=== PATIENT | male | born 1990 | race Caucasian/White ===

== ENCOUNTER 2020-01-03 21:28 | Emergency (ER) | payer SELFPAY ==
--- NOTE | ~2020-01-03 | XR_ITS ---
EXAMINATION: XR chest 2V DATE: 01/03/2020 22:37 INDICATION: Chest pain. Allergic reaction. TECHNIQUE: Frontal and lateral views of the chest were obtained. COMPARISON: Chest 2 views 01/31/2019 FINDINGS: The chest demonstrates clear lungs without pneumonia, pleural effusion, or pneumothorax. Th e heart size is normal. IMPRESSION: 1. No acute cardiopulmonary disease. Reviewed, dictated and finalized at location A.
[2020-01-03 21:33] VITALS: BP 127/90; PULSE 76; RESP 31; TEMP 36.8; O2SAT 98
--- NOTE | 2020-01-03 21:51 | ECG_ITS ---
Measurements Intervals [place] Rate: 65 P: 29 GA: 146 QRS: 35 QRSD: 107 T: 39 QT: 374 QTc: 391 Interpretive Statements SINUS RHYTHM INCOMPLETE RIGHT BUNDLE BRANCH BLOCK DELAYED PRECORDIAL R/S TRANSITION BASELINE ARTIFACT- I, III, AVL BORDERLINE ECG Electronically Signed On 01-04-2020 7:44:04 CDT by Tye Alcazar D.O.
--- NOTE | 2020-01-03 22:11 | ED.ALLEREA ---
HPI - Allergic Reaction General Chief complaint: Allergic Reaction Stated complaint: allergic reaction Time Seen by Provider: 01/03/20 21:36 History of Present Illness HPI narrative: He reports that he feels as if his throat is swelling. This is associated with epigastric pain and nausea. This started after eating left over [place] food. He is afraid that the food may have been contaminated with nuts. He had no reaction when ate the food previously. He reports 1 prior allergic reaction where his throat was closing . He says that it was treated with benadryl only. Related Data Home Medications Medication Instructions Recorded Confirmed escitalopram oxalate 20 mg PO DAILY 04/28/19 04/28/19 zolpidem [Ambien] 5 mg PO HS PRN 01/03/20 Allergies Allergy/AdvReac Type Severity Reaction Status Date / Time tree nut Allergy Anaphylactic Verified 01/03/20 22:21 Shock ORANGE DYE Allergy Intermediate WHEEZING, Uncoded 01/03/20 22:21 DIARRHEA Review of Systems Review of Systems: All systems reviewed & are unremarkable except as noted in HPI and below Constitutional: Constitutional: Denies fever(s) ENT: Reports dysphagia Cardiovascular: Cardiovascular: Reports chest pain Respiratory: Respiratory: Reports dyspnea Gastrointestinal: Gastrointestinal: Reports abdominal pain and Reports nausea PMFSH Past Medical History Medical History Anxiety Normal colonoscopy Social History Social History Smoking status: Never smoker Exam Const: General: healthy appearing, no acute distress and alert Orientation/consciousness: patient oriented x3 HENMT: Head: normal to inspection Neck: Neck: normal visual inspection and no lymphadenopathy Other: no stridor Chest: Chest palpation & inspection: no tenderness Resp: Effort & Inspection: normal respiratory effort Auscultation: clear to auscultation bilaterally, no rales, no rhonchi and no wheezes Cardio: Jugular venous distension: no JVD Rate: regular rate Rhythm: regular rhythm Heart sounds: no murmurs GI: Inspection: non-distended GI Palp: Yes Soft to palpation and No Tenderness to palpation present (GI) Skin: General skin exam: normal color Neuro: General: patient oriented x3 and moves all extremities Speech: normal speech Extrem: General: no edema Psych: Appearance: well kempt Affect: Anxious affect present Course Vital Signs Vital signs: Vital Signs Temperature 36.8 C 01/03/20 21:33 Pulse Rate 76 01/03/20 21:33 Respiratory Rate 31 H 01/03/20 21:33 Blood Pressure 127/90 01/03/20 21:33 Pulse Oximetry 98 01/03/20 21:33 Temperature 36.8 C 01/03/20 21:33 Pulse Rate 69 01/04/20 00:17 Respiratory Rate 14 01/04/20 00:17 Blood Pressure 110/71 01/04/20 00:17 Pulse Oximetry 98 01/04/20 00:17 MDM - Allergic Reaction MDM Narrative Medical decision making narrative: I see no objective evidence of allergic reaction. I suspect he has some esophageal irritation from acid reflux and he is very anxious. Symptoms resolved with protonix and a small dose of ativan Medical Records Attestation: I reviewed the patient's medical records. Lab Data Attestation: I reviewed the patient's lab results. Result diagrams: 01/03/20 22:30 01/03/20 22:30 Labs: Lab Results 01/03/20 01/03/20 Range/Units 22:30 22:30 WBC 5.5 (4.5-10.0) K/mm3 RBC 5.37 (4.6-6.20) M/mm3 Hgb 15.8 (14.0-18.0) g/dL Hct 44.9 (42.0-52.0) % MCV 83.6 (80-100) fl MCH 29.4 (26-34) pg MCHC 35.2 (32-36) g/dl RDW 12.6 (11.5-14.5) % Plt Count 243 (150-375) k/mm3 MPV 10.5 H (7.4-10.4) fl Immature Gran % (Auto) 0.2 (0-0.5) % Neut % (Auto) 40.5 L (45.5-73.1) % Lymph % (Auto) 47.8 H (18.3-44.2) % [place] % (Auto) 8.6 H (2.6-8.5) % Eos % (Auto) 2.2 (0-4.4) % Baso % (Auto
[2020-01-03 22:25] VITALS: BP 133/91; PULSE 74; RESP 14; O2SAT 97
[2020-01-03 22:27] VITALS: PULSE 79; RESP 14; O2SAT 97
[2020-01-03] MEDS: PANTOPRAZOLE SODIUM IV 40 MG VIAL IV PUSH (22:31)
[2020-01-03 22:38] LABS: Basophils Percent Auto 0.7 % (0.2-1.2); Eosinophils Absolute Auto 0.1 K/mm3 (0-0.3); Eosinophils Percent Auto 2.2 % (0-4.4); Hematocrit 44.9 % (42.0-52.0); Hemoglobin 15.8 g/dL (14.0-18.0); Immature Granulocyte Absolute 0.01 K/mm3 (0.00-0.031); Immature Granulocyte Percent A 0.2 % (0-0.5); Lymphocytes Absolute Auto 2.62 K/mm3 (0.9-3.2); Lymphocytes Percent Auto 47.8 % (18.3-44.2); Mean Corpuscular HGB Conc 35.2 g/dl (32-36); Mean Corpuscular Hemoglobin 29.4 pg (26-34); Mean Corpuscular Volume 83.6 fl (80-100); Mean Platelet Volume 10.5 fl (7.4-10.4); Monocytes Absolute Auto 0.5 K/mm3 (0.1-0.6); Monocytes Percent Auto 8.6 % (2.6-8.5); Neutrophils Absolute Auto 2.2 K/mm3 (1.3-6.7); Neutrophils Percent Auto 40.5 % (45.5-73.1); Platelet Count Result 243 k/mm3 (150-375); Red Blood Count 5.37 M/mm3 (4.6-6.20); Red Cell Distribution Width 12.6 % (11.5-14.5); White Blood Count 5.5 K/mm3 (4.5-10.0)
[2020-01-03 22:52] LABS: Alanine Aminotransferase 21 U/L (4-50); Albumin Level 4.3 g/dL (3.5-5.1); Alkaline Phosphatase 68 U/L (38-126); Aspartate Amino Transferase 24 U/L (17-59); Bilirubin,Total 0.3 mg/dL (0.2-1.3); Blood Urea Nitrogen 8 mg/dL (9-20); Calcium 9.1 mg/dL (8.4-10.2); Carbon Dioxide 25 mmol/L (22-30); Chloride 102 mmol/L (98-107); Estimated CRCL calculation 133 ml/min; Estimated Glomerular Filt Rate > 60; Glucose 101 mg/dL (75-110); Lipase 117 U/L (23-300); Potassium 3.4 mmol/L (3.4-5.0); Sodium 136 mmol/L (137-145)
[2020-01-03] MEDS: LORazepam 0.5 MG TABLET PO (23:04)
[2020-01-03 23:05] VITALS: BP 113/74; PULSE 79; RESP 18; O2SAT 100
--- NOTE | 2020-01-03 23:14 | PC.NURSE ---
RN report given to
[2020-01-04 00:17] VITALS: BP 110/71; PULSE 69; RESP 14; O2SAT 98
== END 2020-01-04 00:18 | disposition home or self-care (01) ==
PROVIDERS: Emergency Provider Emergency Medicine
DX: R22.1 Localized swelling, mass and lump, neck (principal); F41.9 Anxiety disorder, unspecified; F32.9 Major depressive disorder, single episode, unspecified
CPT/HCPCS: 36415; 71046; 80053; 83690; 85025; 93005; 96374; 99284; A9270; C9113

== ENCOUNTER 2021-06-16 10:54 | Emergency (ER) | payer OTHER, SELFPAY ==
[2021-06-16 11:16] VITALS: BP 101/55; PULSE 106; RESP 18; TEMP 37.7; O2SAT 98
--- NOTE | 2021-06-16 11:54 | ED.GENADULT ---
HPI - General Adult General Chief complaint: Upper Respiratory Infection Stated complaint: fever,sorethroat Time Seen by Provider: 06/16/21 11:54 Source: patient Mode of arrival: ambulatory Limitations: no limitations History of Present Illness HPI narrative: Patient is a 30-year-old male presents to the urgent care via POV for evaluation of upper respiratory symptoms that began 2 and half days ago. Additionally, patient reports rhinorrhea, nasal congestion, myalgias, vomiting, and nausea. He states he had one episode of vomiting undigested food since onset. Tylenol and increasing water intake as provided some relief. Eating increases nausea. Patient states he is unvaccinated against Covid and influenza. Denies known exposure to sick contacts. Related Data Home Medications Medication Instructions Recorded Confirmed escitalopram oxalate 20 mg PO DAILY 04/28/19 06/16/21 Allergies Allergy/AdvReac Type Severity Reaction Status Date / Time tree nut Allergy Anaphylactic Verified 06/16/21 11:45 Shock ORANGE DYE Allergy Intermediate WHEEZING, Uncoded 06/16/21 11:45 DIARRHEA Review of Systems Review of Systems: Denies fever, chills, sweats, change in appetite, ear pain, sore throat, drooling, abdominal pain, diarrhea, constipation, urinary symptoms, cough, wheezing, cyanosis, shortness of breath, chest pain, and heart palpitations PMFSH Past Medical History Medical History (Updated 06/16/21 @ 12:15 by Karl Cheung [facility], ) Anxiety Normal colonoscopy Social History Social History Smoking status: Never smoker Comments I have reviewed and agree with the patient's past medical, surgical, social, and family hx as documented by the RN. There is no relevant family history pertinent to the presenting complaint. Exam Narrative: GENERAL: Well-appearing, well-nourished, and in no acute distress. HEAD: Normocephalic, atraumatic. ENT: Bilateral external ears and ear canals normal. Bilateral TMs are normal.No TM perforation. Nares clear, no rhinorrhea or epistaxis. Bilateral turbinates moderately edematous. Mucous membranes moist and pink. Uvula is midline without erythema and swelling. No evidence of petechial rash, cobblestoning, lesions, ulcers, erythema, swelling, exudates, peritonsillar abscess, tenting, or drooling. Breath odor and voice normal. NECK: Supple. No Lymphadenopathy or nuchal rigidity appreciated. CHEST: Lung sounds are clear to auscultation in bilateral lung de guzman. No respiratory distress. HEART: Tachycardia with a rate of 106. Regular rhythm. No murmur, gallop, or rub heard. ABDOMEN: Soft, non-tender, non-distended, normal active bowel sounds in all quadrants. No guarding. No rebound tenderness. No pulsatile or palpable abdominal mass(es). No CVAT : Bladder non-distended, non-tender EXTREMITIES: Normal range of motion. No edema. SKIN: Warm, dry, no rash. No skin color changes. Excellent turgor. NEURO: No focal deficits. Alert and oriented x3. Course Vital Signs Vital signs: Vital Signs Temperature 99.8 F H 06/16/21 11:16 Pulse Rate 106 H 06/16/21 11:16 Respiratory Rate 18 06/16/21 11:16 Blood Pressure 101/55 L 06/16/21 11:16 Pulse Oximetry 98 06/16/21 11:16 Temperature 99.8 F H 06/16/21 11:16 Pulse Rate 106 H 06/16/21 11:16 Respiratory Rate 18 06/16/21 11:16 Blood Pressure 101/55 L 06/16/21 11:16 Pulse Oximetry 98 06/16/21 11:16 Reviewed Medical Decision Making Differential Diagnosis Differential Diagnosis: Allergic rhinitis, ABRS, acute viral sinusitis, strep pharyngitis, nasopharyngitis, bronchitis, pneumonia, AOM, otitis externa, viral URI, influenza, covid-19 Medical Records Medical records reviewed: Yes I reviewed the external patient's medical records. Vital Signs Vital Signs: Vital Signs Temperature 99.8 F H 06/16/21 11:16 Pulse Rate 106 H 06/16/21 11:16 Respi
== END 2021-06-16 12:20 | disposition home or self-care (01) ==
PROVIDERS: Emergency Provider Nurse Practitioner Family
DX: J06.9 Acute upper respiratory infection, unspecified (principal); F41.9 Anxiety disorder, unspecified
CPT/HCPCS: 87081; 87804; 87880; 99213; G0463

== ENCOUNTER 2021-06-20 10:01 | Emergency (ER) | payer OTHER, SELFPAY ==
[2021-06-20 10:25] VITALS: BP 101/67; PULSE 80; RESP 16; TEMP 36.7; O2SAT 100
--- NOTE | 2021-06-20 10:58 | ED.URI ---
HPI - URI/Sore Throat General Chief Complaint: Upper Respiratory Infection Stated Complaint: Sore Throat,Cough,Nausea Time Seen by Provider: 06/20/21 10:45 Source: patient and RN notes reviewed Mode of arrival: ambulatory Limitations: no limitations History of Present Illness HPI Narrative: Patient presents today complaining of a 1 week history of sore throat and cough. He was seen here at [facility] on 06/16/2021 where his strep test and influenza swab were both negative. He was subsequently diagnosed with a URI. States symptoms have not been improving and he came back for further evaluation. Denies shortness of breath or fever. Pain increases with swallowing. He currently rates his pain 6/10. He has been taking NyQuil, Benadryl, and using cough drops. He has not been vaccinated against COVID-19. MD elicited complaint: cough and sore throat Related Data Home Medications Medication Instructions Recorded Confirmed escitalopram oxalate 20 mg PO DAILY 04/28/19 06/20/21 Allergies Allergy/AdvReac Type Severity Reaction Status Date / Time tree nut Allergy Severe Anaphylactic Verified 06/20/21 10:27 Shock ORANGE DYE Allergy Intermediate WHEEZING, Uncoded 06/20/21 10:27 DIARRHEA Review of Systems Review of Systems: CONSTITUTIONAL: Denies body aches, fever, chills, or sweats. EYES: Denies visual changes, redness, or discharge. ENT: Denies rhinorrhea, congestion, or otalgia.+ Sore throat CARDIOVASCULAR: Denies chest pain, palpitations, or edema. RESPIRATORY: Denies dyspnea.+ Cough GASTROINTESTINAL: Denies abdominal pain, nausea, vomiting, or diarrhea. GENITOURINARY: Denies dysuria or hematuria. SKIN: Denies rash, itching, or wounds. MUSCULOSKELETAL: Denies back pain, joint pain, or myalgia. NEUROLOGIC: Denies headache, numbness, tingling, or weakness. PSYCH: Denies depression or anxiety. [facility] Past Medical History Medical History (Updated 06/20/21 @ 11:04 by Sunni aTylor, QUAN, BC) Anxiety Normal colonoscopy Social History Social History Smoking status: Never smoker Comments At time of signature, I have reviewed and agree with nursing past medical, surgical, social and family history unless otherwise noted. Please see nursing chart for further information. There is no relevant family history pertinent to the presenting complaint Exam Narrative: GENERAL: Well-appearing, well-nourished, and in no acute distress. HEAD: Normocephalic, atraumatic. EYES: EOMI. No redness or drainage. Conjunctivae normal. ENT: Mucous membranes pink and moist. Nares clear. No rhinorrhea. TMs normal bilaterally. Throat moderately erythematous. No edema. Patient has several large ulcerations to the posterior oropharynx and palatine arch. Uvula midline. NECK: Normal AROM. Supple. No lymphadenopathy. CHEST: No respiratory distress. Clear to auscultation. HEART: Regular rate and rhythm. No murmur appreciated. Normal peripheral pulses. EXTREMITIES: Normal range of motion. No edema. SKIN: Warm, dry, no rash. Capillary refill normal. Normal skin turgor. NEURO: No focal deficits. Alert and oriented x3. Gait steady. PSYCH: Normal affect. No signs of depression or anxiety. Course Course Level of Care: Express Care Visit Vital Signs Vital signs: Vital Signs Temperature 98.1 F 06/20/21 10:25 Pulse Rate 80 06/20/21 10:25 Respiratory Rate 16 06/20/21 10:25 Blood Pressure 101/67 06/20/21 10:25 Pulse Oximetry 100 06/20/21 10:25 Temperature 98.1 F 06/20/21 10:25 Pulse Rate 80 06/20/21 10:25 Respiratory Rate 16 06/20/21 10:25 Blood Pressure 101/67 06/20/21 10:25 Pulse Oximetry 100 06/20/21 10:25 Reviewed MDM - URI/Sore Throat Differential Diagnosis Differential diagnosis: Likely upper respiratory infection, sinusitis, viral infection, pharyngitis and other (Strep throat, COVID-19) Lab Data Attestation: I reviewed
== END 2021-06-20 11:37 | disposition home or self-care (01) ==
PROVIDERS: Emergency Provider Nurse Practitioner
DX: U07.1 COVID-19 (principal); F41.9 Anxiety disorder, unspecified
CPT/HCPCS: 87081; 87426; 87880; 99213; C9803; G0463

== ENCOUNTER 2022-06-10 20:45 | Emergency (ER) | payer OTHER, SELFPAY ==
--- NOTE | ~2022-06-10 | CT_ITS ---
EXAMINATION: CTA chest PE protocol DATE: 06/11/2022 01:14 INDICATION: tachy, SOB, low CP radiating into mid back TECHNIQUE: Computed tomography angiography (CTA) of the chest was performed with 100 mL Omnipaque-350 intravenous contrast timed to evaluate the pulmonary arteries. Coronal maximum intensity projection 3D-reconstructions were created by the technologist. The dose-length product (DLP) was 337.44 mGy-cm. Automated exposure control and iterative reconstruction technique were employed. COMPARISON: X-ray chest 06/10/2022. FINDINGS: Lung parenchyma and airways: Minimal dependent left lower lobe atelectasis. Pleura: Unremarkable. Thoracic inlet, axillae and chest wall: Bilateral mild gynecomastia. Thoracic aorta: Normal. Mediastinum: Normal. Heart and pericardium: Normal. Trace pericardial fluid, within physiologic range. Coronary artery calcifications: Absent. Upper abdomen: No significant finding. Bones: No acute osseous finding. Pulmonary arteries: Study quality: Mild motion artifact, overall diagnostic. No pulmonary emboli dete cted. IMPRESSION: No CT evidence of acute pulmonary embolus. Reviewed, dictated and finalized at location K. AGATION WORKER
--- NOTE | ~2022-06-10 | XR_ITS ---
XR chest 2V DATE: 06/10/2022 21:37 INDICATION: Chest pain, sore throat TECHNIQUE: PA and lateral views COMPARISON: 01/03/2020 PA and lateral chest FINDINGS: Normal heart size. No hilar or mediastinal enlargement. No pulmonary infiltrate or consolid ation, pleural effusion or pulmonary vascular congestion or pneumothorax is detected. IMPRESSION: Negative Reviewed, dictated and finalized at location A. E STOCK HELP IMPRESSION: Negative
--- NOTE | 2022-06-10 20:46 | ECG_ITS ---
Measurements Intervals [place] Rate: 114 P: 55 IA: 161 QRS: 57 QRSD: 112 T: 55 QT: 317 QTc: 438 Interpretive Statements SINUS TACHYCARDIA WANDERING BASELINE ARTIFACT NONSPECIFIC INTRAVENTRICULAR CONDUCTION DELAY BORDERLINE ECG COMPARED TO ECG 01/03/2020 21:37:19 HEART RATE HAS INCREASED Electronically Signed On 06-11-2022 13:30:47 NEWBORN HEARING SCREENER by Abdulkadir Barber M.D.
[2022-06-10 20:52] VITALS: BP 120/74; PULSE 116; RESP 20; TEMP 36.3; O2SAT 98
[2022-06-10 21:05] LABS: Basophils Percent Auto 0.6 % (0.2-1.2); Eosinophils Absolute Auto 0.1 K/mm3 (0-0.3); Eosinophils Percent Auto 2.5 % (0-4.4); Hematocrit 42.2 % (42.0-52.0); Hemoglobin 14.6 g/dL (14.0-18.0); Immature Granulocyte Absolute 0.01 K/mm3 (0.00-0.031); Immature Granulocyte Percent A 0.2 % (0-0.5); Lymphocytes Absolute Auto 1.51 K/mm3 (0.9-3.2); Lymphocytes Percent Auto 29.2 % (18.3-44.2); Mean Corpuscular HGB Conc 34.6 g/dl (32-36); Mean Corpuscular Hemoglobin 29.9 pg (26-34); Mean Corpuscular Volume 86.5 fl (80-100); Mean Platelet Volume 9.9 fl (7.4-10.4); Monocytes Absolute Auto 0.7 K/mm3 (0.1-0.6); Monocytes Percent Auto 12.7 % (2.6-8.5); Neutrophils Absolute Auto 2.8 K/mm3 (1.3-6.7); Neutrophils Percent Auto 54.8 % (45.5-73.1); Platelet Count Result 242 k/mm3 (150-375); Red Blood Count 4.88 M/mm3 (4.6-6.20); Red Cell Distribution Width 12.5 % (11.5-14.5); White Blood Count 5.2 K/mm3 (4.5-10.0)
[2022-06-10 21:15] LABS: Alanine Aminotransferase 32 U/L (6-50); Albumin Level 4.7 g/dL (3.5-5.1); Alkaline Phosphatase 69 U/L (38-126); Anion Gap 9 mmol/L (8-16); Aspartate Amino Transferase 32 U/L (17-59); Bilirubin,Total 0.4 mg/dL (0.2-1.3); Blood Urea Nitrogen 13 mg/dL (9-20); Calcium 8.9 mg/dL (8.4-10.2); Carbon Dioxide 26 mmol/L (22-30); Chloride 101 mmol/L (98-107); Estimated CRCL calculation 106 ml/min; Estimated Glomerular Filt Rate > 60; Glucose 107 mg/dL (65-110); Lipase 110 U/L (23-300); Potassium 3.4 mmol/L (3.4-5.0); Sodium 136 mmol/L (137-145)
[2022-06-10 21:17] LABS: Prothrombin Time 13.2 Seconds (11.1-14.7)
[2022-06-10 21:26] LABS: Troponin I < 0.012 ng/mL (0.000-0.034)
--- NOTE | 2022-06-10 22:26 | ED.CHESTPAIN ---
HPI - Chest Pain General Chief Complaint: Chest Pain Stated Complaint: Chest pain,epigstric pain Time Seen by Provider: 06/10/22 22:20 History of Present Illness HPI narrative: Patient is a 31-year-old male here for evaluation of epigastric pain over the past 30s. Patient states the pain came on while he was at rest, is described as a tightness sensation, severe in nature. The pain was at its worst for about 30 minutes but has slowly eased up without intervention. Denies history of previous similar sensation. Reports associated shortness of breath. No nausea, vomiting, fevers, chills. Related Data Home Medications Medication Instructions Recorded Confirmed escitalopram oxalate 20 mg tablet 20 mg PO DAILY 04/28/19 06/20/21 Allergies Allergy/AdvReac Type Severity Reaction Status Date / Time tree nut Allergy Severe Anaphylactic Verified 06/10/22 20:56 Shock ORANGE DYE Allergy Intermediate WHEEZING, Uncoded 06/20/21 10:27 DIARRHEA Review of Systems Review of Systems: Gen: Denies fevers or chills Eyes: Denies eye pain or visual change ENT: Denies congestion Respiratory: Denies shortness of breath or cough CV: Reports epigastric/chest pain. GI: Denies abdominal pain nausea, emesis or diarrhea denies burning, urgency, frequency or hematuria Musculoskeletal: Denies back pain or muscle pain Neuro: Denies numbness, tingling, weakness or focal weakness Skin: Denies rash Except as documented, all other systems reviewed and negative PMFSH Past Medical History Medical History (Updated 06/11/22 @ 01:43 by Linn Montes PA-C) Anxiety Normal colonoscopy Social History Social History Smoking status: Never smoker Exam Narrative: APPEARANCE: Well appearing, no pain in distress, well-nourished. Head: Normocephalic and atraumatic. EYES: PERRLA/EOMI, conjunctivae clear NOSE: No nasal drainage EARS: External ear normal in appearance THROAT: Oropharynx is clear. Mucous membranes are moist. NECK: Supple. No adenopathy, no masses. RESPIRATORY: Airway patent, respirations nonlabored. Clear to auscultation bilaterally, no rales, rhonchi, wheezing. CARDIOVASCULAR: Regular rate and rhythm without murmurs, rubs, or gallops. ABDOMINAL: Normoactive bowel sounds. Soft, nontender, nondistended. No rebound tenderness or guarding. MUSCULOSKELETAL: Extremities are warm and well-perfused. Moves all extremities well. No edema. NEURO: Normal speech. No focal neurologic deficits. SKIN: Skin is warm and dry. No rashes. PSYCHIATRIC: Normal affect/mood.. Course Vital Signs Vital signs: Vital Signs Temperature 97.4 F L 06/10/22 20:52 Pulse Rate 116 H 06/10/22 20:52 Respiratory Rate 20 06/10/22 20:52 Blood Pressure 120/74 06/10/22 20:52 Pulse Oximetry 98 06/10/22 20:52 Oxygen Delivery Room Air 06/10/22 20:52 Temperature 97.4 F L 06/10/22 20:52 Pulse Rate 100 06/11/22 02:45 Respiratory Rate 19 06/11/22 02:45 Blood Pressure 108/71 06/11/22 02:45 Pulse Oximetry 99 06/11/22 02:45 Oxygen Delivery Room Air 06/11/22 01:00 MDM - Chest Pain MDM Narrative Medical decision making narrative: 31-year-old male here for evaluation of epigastric/chest discomfort for the past several hours. Exam without evidence of volume overload so doubt heart failure. EKG without signs of active ischemia. Given the timing of pain to ER presentation, delta troponin was negative so doubt NSTEMI. Presentation not consistent with acute PE (not seen on CTA),pneumothorax (not visualized on chest xr), thoracic aortic dissection, pericarditis, tamponade, pneumonia (no infectious symptoms, clear chest xr), myocarditis (no recent illness, neg trop). HEART score:0 so plan to discharge patient home with PMD follow up. COVID and flu negative. He is given return precautions and he voiced understanding. Lab Data 06/10/22 21:00 06/10/22
[2022-06-11 01:00] VITALS: PULSE 100; O2SAT 100
[2022-06-11 01:04] LABS: Troponin I < 0.012 ng/mL (0.000-0.034)
[2022-06-11 01:18] LABS: Influenza A QL RT-PCR Negative (Negative); Influenza B QL RT-PCR Negative (Negative); SARS-CoV-2 RNA PCR Negative
[2022-06-11] MEDS: MAG HYDROX/AL HYDROX/SIMETH 30 ML UDC PO (01:21)
[2022-06-11 02:32] VITALS: BP 108/71; PULSE 101; RESP 18; O2SAT 100
[2022-06-11 02:45] VITALS: BP 108/71; PULSE 100; RESP 19; O2SAT 99
== END 2022-06-11 02:47 | disposition home or self-care (01) ==
PROVIDERS: Emergency Medicine; Emergency Provider Physician Assistant
DX: R07.89 Other chest pain (principal); Z20.822 Contact with and (suspected) exposure to COVID-19; F41.9 Anxiety disorder, unspecified; R00.0 Tachycardia, unspecified; I45.9 Conduction disorder, unspecified
CPT/HCPCS: 36415; 71046; 71275; 80053; 83690; 84484; 85025; 85610; 85730; 87636; 93005; 99284; A9270; Q9967

== ENCOUNTER 2024-12-16 15:45 | Emergency (ER) | payer OTHER, SELFPAY ==
--- NOTE | ~2024-12-16 | CT_ITS ---
EXAMINATION: CT abdomen pelvis w con DATE: 12/16/2024 20:37 INDICATION: abdominal pain LLQ TECHNIQUE: Computed tomography (CT) of the abdomen and pelvis was performed with 100 mL Omnipaque-350 intravenous contrast. Automated exposure control and iterative reconstruction technique were employe d. The dose-length product was 1184.14 mGy-cm. COMPARISON: None. FINDINGS: Lower thorax: Unremarkable Liver: Left lobe cyst. Biliary/Gallbladder: Gallbladder is absent. No bile duct dilation. Pancreas: No mass or duct dilation. Spleen: Normal. Adrenals:No mass. Kidneys: No suspicious mass, obstructing stone, or hydronephrosis. Simple left upper pole cyst. GI tract: No small or large bowel dilation. Normal appendix. Mesentery/Peritoneum: No ascites, mass, or free air. Retroperitoneum: No mass. Pelvis: Pelvic organs are within normal limits. Soft Tissues: Soft tissues and body wall unremarkable. Bones: No acute osseous finding. IMPRESSION: No acute abdominopelvic process detected Reviewed, dictated and finalized at location K.
--- OUTSIDE RECORDS SUMMARY | 2024-12-16 15:50 | XMS_ITS | Patient Health Record ---
Author Organization [employer] Address [address] [facility]. [address] [place] [id number] Care Team Providers Care Extension Work Instructor Name Role Phone Jess Del Real MD Primary Care Provider Sharan Lockhart Unavailable [phone] Reason For Referral No Information Medications Medication SIG (Take, Route, Fr equency, Duration) Notes Start Date End Date Status Nortripytline HCl Ac tive Immunizations Vaccine Route Administration Date Status Comme nts Influenza Vaccination Unknown 11/07/2018 Refused Social History Tobacco Use: Social History Observation Description Date Details (start date - stop date) Former Smoker NA - NA Tobacco Use/Smoking Question Answer Notes Are you a former smoker How long has it been since you last smoked? > 10 years Problems Problem Type SNOMED Code ICD Code Onset Dates Problem Status W/U Status Risk Notes Problem 916923403 Gastro-esophage al reflux disease with esophagitis (K21.0) Active confirmed Problem 415114290 Celiac disease (K90.0) Active confirmed Problem 03004978 Epigastric pain (R10.13) Active confirmed He complains of episodes of epigastric pain with nausea vomiting. Recent labs which included CBC, CMP, amylase, lipase and TSH were normal. CT scan revealed no abnormalities as well. Differential diagnosis includes GERD, gastroparesis, cholelithiasis, biliary dyskinesia or other. Reports to have undergone endoscopy in 2013 which was normal. Given the weight loss, would like to exclude celiac disease and a small bowel process. Problem 19545335 Weight loss (R63.4) Active confirmed He reports to have undergone endoscopy and colonoscopy for similar symptoms in 2013 which were normal per her his report. These records are unavailable for review at the present time. Recent labs including TSH were unrevealing as well as CT scan of the abdomen and pelvis. Recent celiac panel was abnormal however small bowel biopsy did not reveal evidence of celiac disease. Given his ongoing symptoms would like to rule out inflammatory bowel disease. Problem 98519308 Constipation (K59.00) Active confirmed Problem 47900259 Lower abdominal pain (R10.30) Active confirmed He complains o f lower abdominal pain and constipation. His last colonoscopy was normal in 2013 per his report. Suspect irritable bowel syndrome, however given the ongoing pain and weight loss, would like to exclude inflammatory bowel disease. Problem 62177073 Nausea and vomiting (R11.2) Active confirmed He continues to experience nausea without any further vomiting since initiating the nortriptyline. Recent celiac panel was abnormal therefore he underwent endoscopy with small bowel biopsy. Biopsy revealed no evidence of celiac disease. He was noted to have esophagitis with no eosinophils or Ramirez's esophagus. Differential diagnosis includes gluten sensitivity, GERD, nonulcer dyspepsia, small bowel process, or other. Recent ultrasound of the gallbladder was unrevealing. He has undergone extensive evaluation over the years including CT scan as well as endoscopy with colonoscopy at an outside hospital in 2013. Problem 207960396 Abnormal celiac antibody panel (R89.4) Active confirmed Plan Of Treatment Pending Test Test Name Order Date Upper Endoscopy 11/13/2018 Colonoscopy 2018 Initiate SIBO 11/07/2018 Insurance Providers Payer Name Payer Address Payer Phone Subscriber Number Group Number Insured Name Patient Relationship to Insured Coverage Start Date Coverage End Date [facility] Choice/ choice Plus [id number] [address] [place] [phone] [id number] October, Trina Anand Child - Insured has Financial Responsibility Medical (General) History Medical History History ICD Code IBS GERD Small intestinal bacterial overgrowth Surgical History Surgery Date(Month/Year) EGD 11/2018 Tonsillectomy [place] tooth extraction Colonoscopy (outside provider)
--- OUTSIDE RECORDS SUMMARY | 2024-12-16 15:50 | XMS_ITS | Encounter Summary ---
Author Organization [facility] Address [facility] [place] [address] Care Team Providers Care Manager Documentation Name Role Phone Unavailable Primary Care Provider Unavailabl e Encounter Details Date Type Department Care Team (Late st Contact Info) Description 11/24/[address] [facility] Conversion [address] [place] [address] , Generic Conversion, Social History Tobacco Use Types Packs/Day Years Used Date Smoking Tobacco: Never Assessed Sex and Gender Information Value Date Recorded Sex Assigned at Not on file Legal Sex Male 9:48 PM [employer] T[employer]OW [employer] Gender Identity Not on file Sexual Orientation Not on file documented as of this encounter Plan of Treatment Not on file documented as of this encounter Visit Diagnoses Not on filedocumented in this encounter
--- OUTSIDE RECORDS SUMMARY | 2024-12-16 15:50 | XMS_ITS | Clinical Summary ---
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 Gender Identity Not on file Sexual Orientation Not on file Plan of Treatment Health Maintenance Due Date Last Done Comments Annual Physical 12/04/1995 Hepatitis C 2010 DTaP, Tdap and Td Vaccines ( 1 - Tdap) 12/04/2011 Hepatitis B Vaccines (1 of 3 - 19+ 3-dose series) 12/04/2011 COVID-19 Vaccine (2023-2 5 season) 2024 HPV Vaccines Aged Out No longer eligi ble based on patient's age to complete this topic Meningococcal B Vaccine Aged Out No l onger eligible based on patient's age to complete this topic Meningococcal Vaccine Aged Out No arlene maria elena eligible based on patient's age to complete this topic Pneumococcal Vaccine: Pediat rics (0 to 5 Years) and At-Risk Patients (6 to 49 Years) Aged Out No longer eligible b ased on patient's age to complete this topic RSV Immunizations Under 20 Months Aged Out No longer eligible based on patient's age to complete this topic
[2024-12-16 15:56] VITALS: BP 130/91; PULSE 116; RESP 18; TEMP 36.9; O2SAT 98
--- NOTE | 2024-12-16 16:11 | ECG_ITS ---
Test Date: 2024-12-16 20:40:10 Measurements Intervals [place] Rate: 97 P: 11 AL: 159 QRS: 12 QRSD: 121 T: 40 QT: 346 QTc: 440 Interpretive Statements SINUS RHYTHM MODERATE INTRAVENTRICULAR CONDUCTION DELAY [110+ ms QRS DURATION] No previous ECG available for comparison Electronically Signed On 12-17-2024 15:34:23 CDT by Kendra Thomas
--- NOTE | 2024-12-16 16:12 | ED.ABDPAIN ---
HPI - Abdominal Pain General Chief Complaint: Urogenital-Male <Kelly Lewis, CREW ATTENDANT - Last Filed: 12/16/24 16:16> Stated Complaint: Difficulty urinating <Kelly Lewis APRN - Last Filed: 12/16/24 16:16> Time Seen by Provider: 12/16/24 16:00 <Kelly Lewis APRN - Last Filed: 12/16/24 16:16> Focused HPI: Patient is a 34-year-old male who presents to the ER with complaints of ?feeling like fiberglass when I pee.He reports his symptoms started around 1:00 p.m. this afternoon. Patient reports that 1st he had difficulty urinating, but then started experiencing extreme pain. He reports he went to urgent care who told him his urine showed no acute abnormalities. They advised patient he needed to come here to rule out prostatitis. Patient endorses lower abdominal pain and left flank pain. He denies any medical history besides a cholecystectomy. GENERAL: Well-appearing, well-nourished, and in no acute distress. HEAD: Normocephalic, atraumatic. CHEST: Clear to auscultation. ?No respiratory distress. HEART: Tachycardia. Regular rhythm. ? NEURO: ?Alert and oriented x3. ABD: LLQ pain with palpation, + BS Patient screened in triage and initial orders placed.? ?Additional care and disposition to be based upon?diagnostic testing and treatment. <Kelly Lewis APRN - Last Filed: 12/16/24 16:16> Source: patient and other (Girlfriend) <Yolanda Whitman MD - Last Filed: 12/17/24 18:41> Mode of arrival: ambulatory <Yolanda Whitman MD - Last Filed: 12/17/24 18:41> Limitations: no limitations <Yolanda Whitman MD - Last Filed: 12/17/24 18:41> History of Present Illness HPI narrative: Agree with the above with the following additions/corrections: Patient presents with painful urination. He describes it like feeling like glass or fiberglass when he tries to urinate. He also notes that he is having difficulty initiating and continuing urinary stream. Has to strain to have one. Currently not sexually active as he has been dealing with erectile dysfunction as well. Does not urologist. His grandfather had prostate issues. His last bowel movement was today at approximately 1:00 p.m. he does report that he has had issues with constipation. He otherwise denies any pain on drainage or bleeding. He very briefly experience some left testicle pain while attempting to urinate but believes it was because of the straining when he was trying to do so. No fevers or chills. Slight left flank and left abdominal pain. He did see a urologist >10 years ago due to difficulty urinating, does not follow regularly with one. It was not here at this hospital. Denies any rectal pain. Had a telehealth appointment approximately 7 years ago and was empirically treated for chlamydia he believes, though no confirmation testing. Hasn't been sexually active in several months due to erectile dysfunction. No hematuria. Having urinary urgency. <Yolanda Whitman MD - Last Filed: 12/17/24 18:41> Related Data Home Medications: Home Medications ?Medication ?Instructions ?Recorded ?Confirmed ?Last Taken ?Type escitalopram oxalate 20 mg tablet 20 mg PO DAILY 04/28/19 06/20/21 04/28/19 History <Kelly Lewis APRN - Last Filed: 12/16/24 16:16> Allergies/Adverse Reactions: Allergies Allergy/AdvReac Type Severity Reaction Status Date / Time tree nut Allergy Severe Anaphylactic Verified 06/10/22 20:56 Shock ORANGE DYE Allergy Intermediate WHEEZING, Uncoded 06/20/21 10:27 DIARRHEA <Kelly Lewis APRN - Last Filed: 12/16/24 16:16> [facility] Past Medical History Medical History: Medical History Normal colonoscopy Anxiety <Kelly Lewis APRN - Last Filed: 12/16/24 16:16> Family History Family History: Family History Grandparent Prostate irregularity <Kelly Lewis APRN - Last Filed: 12/16/24 16:16> Social History Social History: Social History Smoking status: Never smoker <Kelly Lewis APRN - Last Filed: 12/16/24 16:16> Exam Narrative: GENERAL: Well-appearing, well-nourished, and in no acute distress. HEAD: Normocephalic, atraumatic. EYES: Non injected, non icteric ENT: Nares clear, no rhinorrhea or epistaxis. Gross auditory acuity intact. NECK: Supple. No meningismus. CHEST: Speaking in full sentences. No respiratory distress. ABDOMEN: Obese but Soft, nondistended. EXTREMITIES: Normal range of motion. No lower extremity edema. SKIN: Warm, dry, no rash. NEURO: No focal deficits. Alert and oriented. Answering questions. Following commands. Normal speech without aphasia or dysarthria. PSYCH: Normal mood and affect. <Yolanda Whitman MD - Last Filed: 12/17/24 18:41> Course Vital Signs Vital signs: Vital Signs Temperature 98.5 F 12/16/24 15:56 Pulse Rate 116 H 12/16/24 15:56 Respiratory Rate 18 12/16/24 15:56 Blood Pressure 130/91 H 12/16/24 15:56 Pulse Oximetry 98 12/16/24 15:56 Oxygen Delivery Room Air 12/16/24 15:56 Temperature 98.5 F 12/16/24 15:56 Pulse Rate 116 H 12/16/24 15:56 Respiratory Rate 18 12/16/24 15:56 Blood Pressure 130/91 H 12/16/24 15:56 Pulse Oximetry 98 12/16/24 15:56 Oxygen Delivery Room Air 12/16/24 15:56 <Kelly Lewis APRN - Last Filed: 12/16/24 16:16> Vital Signs Temperature 98.5 F 12/16/24 15:56 Pulse Rate 116 H 12/16/24 15:56 Respiratory Rate 18 12/16/24 15:56 Blood Pressure 130/91 H 12/16/24 15:56 Pulse Oximetry 98 12/16/24 15:56 Oxygen Delivery Room Air 12/16/24 15:56 Temperature 98.5 F 12/16/24 15:56 Pulse Rate 116 H 12/16/24 15:56 Respiratory Rate 18 12/16/24 15:56 Blood Pressure 130/91 H 12/16/24 15:56 Pulse Oximetry 98 12/16/24 15:56 Oxygen Delivery Room Air 12/16/24 15:56 <Yolanda Whitman MD - Last Filed: 12/17/24 18:41> MDM - Abdominal Pain MDM Narrative Medical decision making narrative: Exceedingly pleasant 34-year-old male presents with report of dysuria and difficulty initiating urinary stream. In the emergency department he is afebrile with vital signs notable for tachycardia. Blood pressure was slightly elevated diastolic blood pressure. Normocytic anemia but otherwise only a mild change from previous, less than 1 g change. Patient also reports that he is not sexually active due to currently experiencing erectile dysfunction. Given this, reasonable to decline STI testing. Workup including CT scan and otherwise been unremarkable. For all of these issues, recommend outpatient follow-up with Urology and patient is in agreement. Stable for discharge. Patient given 1st dose of Pyridium in the emergency department and will prescribe a short course. Advised to stay well hydrated. <Yolanda Whitman MD - Last Filed: 12/17/24 18:41> Differential Diagnosis Differential diagnosis: Likely abdominal pain, constipation and other (Urinary obstruction, urethritis; UTI; erectile dysfunction; BPH; considered stone (including within urethra versus recently passed)) <Yolanda Whitman MD - Last Filed: 12/17/24 18:41> Lab Data Attestation: I reviewed the patient's lab results. <Yolanda Whitman MD - Last Filed: 12/17/24 18:41> Result diagrams: 12/16/24 17:36 12/16/24 17:36 <Kelly Lewis APRN - Last Filed: 12/16/24 16:16> Labs: Lab Results 12/16/24 12/16/24 Range/Units 17:36 20:49 WBC 5.8 (4.5-10.0) K/mm3 RBC 4.78 (4.6-6.20) M/mm3 Hgb 13.9 L (14.0-18.0) g/dL Hct 40.5 L (42.0-52.0) % MCV 84.7 (80-100) fl MCH 29.1 (26-34) pg MCHC 34.3 (32-36) g/dl RDW 13.2 (11.5-14.5) % Plt Count 262 (150-375) k/mm3 MPV 9.8 (7.4-10.4) fl Immature Gran % (Auto) 0.3 (0-0.5) % Neut % (Auto) 45.1 L (45.5-73.1) % Lymph % (Auto) 40.7 (18.3-44.2) % [place] % (Auto) 8.7 H (2.6-8.5) % Eos % (Auto) 4.3 (0-4.4) % Baso % (Auto) 0.9 (0.2-1.2) % Lymph # (Auto) 2.35 (0.9-3.2) K/mm3 [place] # (Auto) 0.5 (0.1-0.6) K/mm3 Eos # (Auto) 0.3 (0-0.3) K/mm3 Baso # (Auto) 0.1 (0.0-0.1) K/mm3 Abs Immat Gran (auto) 0.02 (0.00-0.031) K/mm3 Absolute Neuts (auto) 2.6 (1.3-6.7) K/mm3 Absolute Nucleated RBC 0.000 (0.0-0.012) K/mm3 Nucleated RBC % 0.0 (0.0-0.2) % Sodium 137 (137-145) mmol/L Potassium 3.8 (3.4-5.0) mmol/L Chloride 102 (98-107) mmol/L Carbon Dioxide 26 (22-30) mmol/L Anion Gap 9 (4-12) mmol/L BUN 11 (9-20) mg/dL Creatinine 0.94 (0.7-1.3) mg/dL Estim Creat Clear Calc 128 ml/min Estimated GFR > 60 (59 - ) Glucose 103 (65-110) mg/dL Lactic Acid 1.3 (0.7-2.0) mmol/L Calcium 9.1 (8.4-10.2) mg/dL Total Bilirubin 0.3 (0.2-1.3) mg/dL AST 35 (17-59) U/L ALT 39 (6-50) U/L Alkaline Phosphatase 71 (38-126) U/L Troponin I < 0.012 (0.000-0.034) ng/mL Total Protein 7.7 (6.3-8.2) g/dL Albumin 4.3 (3.5-5.1) g/dL Lipase 109 (23-300) U/L Urine Color Yellow (Yellow) Urine Appearance Cloudy H (Clear) Urine pH 7.5 (5.0-9.0) Ur Specific [place] 1.028 (1.001-1.035) Urine Protein Negative (Negative) mg/dL Urine Glucose (UA) Negative (Negative) mg/dL Urine Ketones Trace H (Negative) mg/dL Ur Blood (Man) Negative (Negative) Urine Nitrate Negative (Negative) Urine Bilirubin Negative (Negative) Urine Urobilinogen 1.0 (<2.0) mg/dL Leukocyte Esterase Rfl Negative (Negative) HUMZA/UL Urine RBC 0-2 (0-2) /hpf Urine WBC 0-5 (0-3) /hpf Ur Squamous Epith Cells None seen (Few) /hpf Urine Bacteria None seen /hpf Urine Casts 0-2 <Kelly Lewis, CREW ATTENDANT - Last Filed: 12/16/24 16:16> Lab Results 12/16/24 12/16/24 Range/Units 17:36 20:49 WBC 5.8 (4.5-10.0) K/mm3 RBC 4.78 (4.6-6.20) M/mm3 Hgb 13.9 L (14.0-18.0) g/dL Hct 40.5 L (42.0-52.0) % MCV 84.7 (80-100) fl MCH 29.1 (26-34) pg MCHC 34.3 (32-36) g/dl RDW 13.2 (11.5-14.5) % Plt Count 262 (150-375) k/mm3 MPV 9.8 (7.4-10.4) fl Immature Gran % (Auto) 0.3 (0-0.5) % Neut % (Auto) 45.1 L (45.5-73.1) % Lymph % (Auto) 40.7 (18.3-44.2) % [place] % (Auto) 8.7 H (2.6-8.5) % Eos % (Auto) 4.3 (0-4.4) % Baso % (Auto) 0.9 (0.2-1.2) % Lymph # (Auto) 2.35 (0.9-3.2) K/mm3 [place] # (Auto) 0.5 (0.1-0.6) K/mm3 Eos # (Auto) 0.3 (0-0.3) K/mm3 Baso # (Auto) 0.1 (0.0-0.1) K/mm3 Abs Immat Gran (auto) 0.02 (0.00-0.031) K/mm3 Absolute Neuts (auto) 2.6 (1.3-6.7) K/mm3 Absolute Nucleated RBC 0.000 (0.0-0.012) K/mm3 Nucleated RBC % 0.0 (0.0-0.2) % Sodium 137 (137-145) mmol/L Potassium 3.8 (3.4-5.0) mmol/L Chloride 102 (98-107) mmol/L Carbon Dioxide 26 (22-30) mmol/L Anion Gap 9 (4-12) mmol/L BUN 11 (9-20) mg/dL Creatinine 0.94 (0.7-1.3) mg/dL Estim Creat Clear Calc 128 ml/min Estimated GFR > 60 (59 - ) Glucose 103 (65-110) mg/dL Lactic Acid 1.3 (0.7-2.0) mmol/L Calcium 9.1 (8.4-10.2) mg/dL Total Bilirubin 0.3 (0.2-1.3) mg/dL AST 35 (17-59) U/L ALT 39 (6-50) U/L Alkaline Phosphatase 71 (38-126) U/L Troponin I < 0.012 (0.000-0.034) ng/mL Total Protein 7.7 (6.3-8.2) g/dL Albumin 4.3 (3.5-5.1) g/dL Lipase 109 (23-300) U/L Urine Color Yellow (Yellow) Urine Appearance Cloudy H (Clear) Urine pH 7.5 (5.0-9.0) Ur Specific [place] 1.028 (1.001-1.035) Urine Protein Negative (Negative) mg/dL Urine Glucose (UA) Negative (Negative) mg/dL Urine Ketones Trace H (Negative) mg/dL Ur Blood (Man) Negative (Negative) Urine Nitrate Negative (Negative) Urine Bilirubin Negative (Negative) Urine Urobilinogen 1.0 (<2.0) mg/dL Leukocyte Esterase Rfl Negative (Negative) HUMZA/UL Urine RBC 0-2 (0-2) /hpf Urine WBC 0-5 (0-3) /hpf Ur Squamous Epith Cells None seen (Few) /hpf Urine Bacteria None seen /hpf Urine Casts 0-2 <Yolanda Whitman MD - Last Filed: 12/17/24 18:41> Imaging Data Radiologist's impression: ITS Impressions Abdomen/Pelvis CT 12/16/24 21:05 IMPRESSION: No acute abdominopelvic process detected <Kelly Lewis APRN - Last Filed: 12/16/24 16:16> ITS Impressions Abdomen/Pelvis CT 12/16/24 21:05 IMPRESSION: No acute abdominopelvic process detected <Yolanda Whitman MD - Last Filed: 12/17/24 18:41> ECG Data EKG #1: Attestation: I personally reviewed and interpreted this ECG as follows: <Yolanda Whitman MD - Last Filed: 12/17/24 18:41> ECG completion date: 12/16/24 <Yolanda Whitman MD - Last Filed: 12/17/24 18:41> ECG completion time: 20:40 <Yolanda Whitman MD - Last Filed: 12/17/24 18:41> Interpretation: Normal sinus rhythm at a rate of 97 beats per minute. LA interval 159. QRS 121. QT/QTC 346/400. Intraventricular conduction delay. No T-wave inversions. <Yolanda Whitman MD - Last Filed: 12/17/24 18:41> Discharge Plan Discharge Clinical Impression: Normocytic anemia, Dysuria, Difficulty initiating urinary stream, Erectile dysfunction <Kelly Lewis APRN - Last Filed: 12/16/24 16:16> Patient Disposition: Home <Kelly Lewis APRN - Last Filed: 12/16/24 16:16> Condition: Stable <Kelly Lewis APRN - Last Filed: 12/16/24 16:16> Instructions: Antibiotic Form, Dysuria (ED) <Kelly Lewis APRN - Last Filed: 12/16/24 16:16> Additional Instructions: As we discussed, you can trial the medication. You received your 1st dose of this medication in the emergency department with the rest of the course prescribed. Drink plenty of water. Pyridium/phenazopyridine can help with the pain you are experiencing from a urinary tract infection. It can discolor your urine and tears (turn them orange). Do not wear contact lenses while taking this medication. Follow-up with urology listed below. In addition, If you do not have a primary care physician, the name of the doctors listed below. Return to the emergency department any new or worsening symptoms. <Kelly Lewis APRN - Last Filed: 12/16/24 16:16> Patient Language: Macedonian <Klely Lewis APRN - Last Filed: 12/16/24 16:16> Prescriptions: New phenazopyridine [Pyridium] 100 mg tablet 100 mg PO TID PRN (Reason: pain) Qty: 5 0RF Rx Instructions: Received 1st dose in the emergency department 6/30 PM No Action escitalopram oxalate 20 mg Tablet 20 mg PO DAILY <Kelly Lewis APRN - Last Filed: 12/16/24 16:16> Follow-up/Referrals: Shant Ng MD [Physician] - (urology) Sylvester Pollard MD [Physician] - (family practice/PCP) PHYSICIAN NOT ON STAFF,NONSTAFF [Non-Staff] - <Kelly Lewis APRN - Last Filed: 12/16/24 16:16> Stand Alone Forms: Work/School Release IP <Kelly Lewis APRN - Last Filed: 12/16/24 16:16> Time of Disposition: 22:35 <Kelly Lewis APRN - Last Filed: 12/16/24 16:16> 22:35 <Yolanda Whitman MD - Last Filed: 12/17/24 18:41>
[2024-12-16 17:45] LABS: Basophils Absolute Auto 0.1 K/mm3 (0.0-0.1); Basophils Percent Auto 0.9 % (0.2-1.2); Eosinophils Absolute Auto 0.3 K/mm3 (0-0.3); Eosinophils Percent Auto 4.3 % (0-4.4); Hematocrit 40.5 % (42.0-52.0); Hemoglobin 13.9 g/dL (14.0-18.0); Immature Granulocyte Absolute 0.02 K/mm3 (0.00-0.031); Immature Granulocyte Percent A 0.3 % (0-0.5); Lymphocytes Absolute Auto 2.35 K/mm3 (0.9-3.2); Lymphocytes Percent Auto 40.7 % (18.3-44.2); Mean Corpuscular HGB Conc 34.3 g/dl (32-36); Mean Corpuscular Hemoglobin 29.1 pg (26-34); Mean Corpuscular Volume 84.7 fl (80-100); Mean Platelet Volume 9.8 fl (7.4-10.4); Monocytes Absolute Auto 0.5 K/mm3 (0.1-0.6); Monocytes Percent Auto 8.7 % (2.6-8.5); Neutrophils Absolute Auto 2.6 K/mm3 (1.3-6.7); Neutrophils Percent Auto 45.1 % (45.5-73.1); Platelet Count Result 262 k/mm3 (150-375); Red Blood Count 4.78 M/mm3 (4.6-6.20); Red Cell Distribution Width 13.2 % (11.5-14.5); White Blood Count 5.8 K/mm3 (4.5-10.0)
[2024-12-16 17:54] LABS: Lactic Acid Reflex 1.3 mmol/L (0.7-2.0)
[2024-12-16 18:00] LABS: Alanine Aminotransferase 39 U/L (6-50); Albumin Level 4.3 g/dL (3.5-5.1); Alkaline Phosphatase 71 U/L (38-126); Anion Gap 9 mmol/L (4-12); Aspartate Amino Transferase 35 U/L (17-59); Bilirubin,Total 0.3 mg/dL (0.2-1.3); Blood Urea Nitrogen 11 mg/dL (9-20); Calcium 9.1 mg/dL (8.4-10.2); Carbon Dioxide 26 mmol/L (22-30); Chloride 102 mmol/L (98-107); Estimated CRCL calculation 128 ml/min; Estimated Glomerular Filt Rate > 60; Glucose 103 mg/dL (65-110); Lipase 109 U/L (23-300); Potassium 3.8 mmol/L (3.4-5.0); Sodium 137 mmol/L (137-145); Total Protein 7.7 g/dL (6.3-8.2)
[2024-12-16 18:11] LABS: Troponin I < 0.012 ng/mL (0.000-0.034)
[2024-12-16 21:00] LABS: Add Urine Microscopic? YES; Appearance Urine Cloudy (Clear); Bacteria Urine None Seen /hpf; Bilirubin Urine Negative (Negative); Blood Urine Negative (Negative); Color Urine Yellow (Yellow); Glucose Urine UA Negative (Negative); Ketones Urine Trace mg/dL (Negative); Leukocyte Esterase Ur Negative LEU/UL (Negative); Nitrate Urine Negative (Negative); Non Pathogenic Casts 0-2; Protein Urine Negative (Negative); RBC Urine 0-2 /hpf (0-2); Specific Grav Ur 1.028 (1.001-1.035); Squamous Epithelial Cell Urine None Seen /hpf (Few); WBC Urine 0-5 /hpf (0-3); pH Urine 7.5 (5.0-9.0)
--- OUTSIDE RECORDS SUMMARY | 2024-12-16 21:53 | XMS_ITS | Clinical Summary ---
Author Organization 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
--- OUTSIDE RECORDS SUMMARY | 2024-12-16 21:53 | XMS_ITS | Encounter Summary ---
Author Organization [facility] Address [address] [place] [address] Care Team Providers Care Crotch Piece Baster Name Role Phone Cruz Thakkar MD Primary Care Provider [phone] Reason for Visit * Reason Comments Urinary Symptom Sharp pain when he u rinates, increased urination, burning with urination, pressure in his testicle area, started area, minor left back pain Encounter Details Date Type Department Care Team (Late st Contact Info) Description 12/16/2024 2:45 PM CDT Office Visit [facility] at [address] [address] Abby Painter NP [address] [place] [address] [address] [place] [address] Burning with urination (Primary Dx); Pain in testicle, unspecified laterality; Left lower quadrant abdominal tenderness without rebound tenderness; Tachycardia Social History Tobacco Use Types Packs/Day Years Used Date Smoking Tobacco: Former Smokeless Tobacco: Never AUDIT-C Answer Date Recorded Q1: How often do you have a drink containing alcohol? Never 12/11/2024 Q2: How many drinks containi ng alcohol do you have on a typical day when you are drinking? Patient does not drink Q3: How often do you have si x or more drinks on one occasion? Never 12/11/2024 PHQ-2 Answer Date Recorded PHQ-2 Total Score (If total score is 3 or more points, staff should administer the PHQ-9) 0 11/19/2024 Personal Safety Answer Date Recorded Have you ever been in or are you currently in a harmful physical or emotional relationship or is someone making you feel afraid or unsafe? 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 Gender Identity Male 07/03/2022 2:34 AM PROPELLER TESTER Sexual Orientation Straight 07/03/2022 2: 33 AM PROPELLER TESTER documented as of this encounter Last Filed Vital Signs Vital Sign Reading Time Taken Comments Blood Pressure 115/82 12/16/2024 2:55 PM CDT Pulse 123 12/16/2024 2:55 PM CDT Temperature 36.7 C (98 F) 12/16/2024 2:55 PM CDT Respiratory Rate 18 12/16/2024 2:55 PM CDT Oxygen Saturation 96% 12/16/2024 2:55 PM CDT Inhaled Oxygen Concentration - - Weight 112 kg (247 lb) 12/16/2024 2:55 PM CDT Height 182.9 cm (6' 0.01) 12/16/2024 2:55 PM CD T Body Mass Index 33.49 12/16/2024 2:55 PM CDT documented in this encounter Progress Notes * Abby Painter NP - 12/16/2024 2:45 PM CDT Images from the original note were not included. Subjective/Objective Patient ID: Tyron Arenas is a 34 y.o. male. This patient has verbally consented to recording this visit in order to utilize AI technology in generating this note. Chief Complaint Urinary Symptom (Sharp pain when he urinates, increased urination, burning with urination, pressurein his testicle area, started area, minor left back pain ) History of Present Illness Tyron Arenas is a 34 year old male who presents with painful urination and lower abdominal discomfort. He experiences painful urination that began after lunch today, described as a sensation of 'urinating fiberglass'. There is a sensation of barbs in the urethra during urination, with difficulty initiating urination and an inconsistent stream. He reports a dull pressure in the left testicle and minor aches in the left kidney area, with pain rated as 3-4 out of 10. No blood or discharge from the penis is present. There is no fever or swelling of the testicles. He has a history of urinary tract infections. Family history is significant for prostate issues, with his grandfather requiring a full-time catheter. Review of Systems All other systems reviewed and are negative. Physical Exam ABDOMEN: Slight discomfort in the left upper quadrant. Tenderness in the left lower quadrant. Physical Exam Vitals and nursing note reviewed. Constitutional: General: He is not in acute distress. Appearance: Normal appearance. Cardiovascular: Rate and Rhythm: Tachycardia present. Pulmonary: Effort: Pulmonary effort is normal. Abdominal: General: Bowel sounds are normal. Palpations: Abdomen is soft. Tenderness: There is abdominal tenderness in the left lower quadrant. There is no guarding. Skin: General: Skin is warm and dry. Capillary Refill: Capillary refill takes less than 2 seconds. Neurological: Mental Status: He is alert and oriented to person, place, and time. Vitals: 12/16/24 1455 BP: 115/82 Pulse: 123 Resp: 18 Temp: 36.7 ??C (98 ??F) SpO2: 96% Weight: 112 kg (247 lb) Height: 182.9 cm (6' 0.01) No results found. Past Medical History: Diagnosis Date Anxiety Colon polyp Depression Gastroesophageal reflux disease GERD HX OTHER MEDICAL varicocele IBS (irritable bowel syndrome) Obstructive sleep apnea 11/19/2024 Current Outpatient Medications: amitriptyline (ELAVIL) 150 mg tablet, Take 1 tablet (150 mg total) by mouth nightly, Disp: 90 tablet, Rfl: 3 montelukast (SINGULAIR) 10 mg tablet, Take 1 tablet (10 mg total) by mouth nightly, Disp: 90 tablet, Rfl: 4 omeprazole (PriLOSEC) 40 mg capsule, Take 1 capsule (40 mg total) by mouth daily, Disp: 90 capsule,Rfl: 3 Allergies Allergen Reactions Cashew Nut Anaphylaxis Pistachio Nut Anaphylaxis Tree Nut Anaphylaxis Social History Tobacco Use Smoking status: Former Smokeless tobacco: Never Substance and Sexual Activity Drug use: Not Currently Sexual activity: Defer Alcohol Use: Not At Risk (12/11/2024) AUDIT-C Frequency of Alcohol Consumption: Never Average Number of Drinks: Patient does not drink Frequency of Binge Drinking: Never Past Surgical History: Procedure Laterality Date CHOLECYSTECTOMY 08/20/2024 COLONOSCOPY ESOPHAGOSCOPY / EGD SEPTORHINOPLASTY 09/2023 TONSILLECTOMY UPPER GASTROINTESTINAL ENDOSCOPY WISDOM TOOTH EXTRACTION Procedures Assessment/Plan 1. Burning with urination (Primary) - Urine culture Urine, clean voided; Future - POCT urinalysis dipstick 2. Pain in testicle, unspecified laterality 3. Left lower quadrant abdominal tenderness without rebound tenderness 4. Tachycardia Results LABS Urinalysis: No hematuria detected (12/16/2024) Recent Results (from the past 4 hours) POCT urinalysis dipstick Collection Time: 12/16/24 3:38 PM Result Value Ref Range Color, Urine, POC Yellow Clarity, ur, POC Clear Clear Glucose, ur, POC Negative Negative Bilirubin, ur, POC Negative Negative Ketones, ur, POC Negative Negative Specific Gill, POC 1.025 1.003 - 1.030 Blood, ur, POC Negative Negative pH, ur, POC 6.5 5.0 - 8.0 Protein, ur, POC Negative Negative Urobilinogen, urine, POC 0.2 0.2 - 1.0 mg/dL Nitrite, ur, POC Negative Negative Leukocytes, ur, POC Negative Negative Lot Number [id number] Assessment & Plan Urogenital Pain Acute dysuria with lower abdominal and left testicular pressure. Differential includes nephrolithiasis, UTI, and prostatitis. Urinalysis negative for infection or hematuria. Prostatitis considered due to symptoms and family history. - Send urine for culture. Abdominal Tenderness Left lower quadrant tenderness recommend higher level of care for further evaluation. - Recommend ER visit for possible imaging, such as ultrasound or CT, to evaluate abdominal tenderness. - Advise ER evaluation for testicular discomfort, abdominal tenderness including possible testicular ultrasound. - Suggest ER evaluation with likely CBC to check for infection. Disposition Treatment plan including expectations, follow up, and return precautions discussed with patient/parent, verbalizes understanding. Medication dosage, use, and potential adverse reactions discussed with patient/parent. Advised to follow up with PCP if symptoms do not resolve as expected or sooner if condition worsens. Signs/symptoms warranting ER evaluation reviewed. Patient and/or guardian was given an opportunity to ask questions, questions answered. Abby Painter NP This office note has been partially dictated using RIVS software, and as a result portions of the record may have been created with this software. Occasional wrong-word or '[id number]' substitutions may have occurred due to the inherent limitations of voice recognition software. Read the chartcarefully and recognize, using context, where substitutions have occurred. Cosigned by Shahab Marx MD at 12/16/2024 4:02 PM CDT documented in this encounter Plan of Treatment Pending Results Name Type Priority Associated Diagnoses Date /Time Urine culture Urine, clean voided Microbiology Routine Burning with urination 12/16/2024 3:54 PM CDT Scheduled Orders Name Type Priority Associated Diagnoses Orde r Schedule Urine culture Urine, clean voided Microbiology Routine Burning with urination Expected: 12/16/2024, Expires: 12/16/2025 documented as of this encounter Procedures Procedure Name Priority Date/Time Associated Diagnosis Comments POCT URINALYSIS DIPSTICK Routine 12/16/2024 3:38 PM CDT Burning with urination documented in this encounter Results * POCT urinalysis dipstick (12/16/2024 3:38 PM CDT) Color, Urine, POC Yellow Clarity, ur, POC Clear Clear Glucose, ur, POC Negative Negative Bilirubin, ur, POC Negative Negative Ketones, ur, POC Negative Negative Specific Gill, POC 1.025 1.003 - 1.030 Blood, ur, POC Negative Negative pH, ur, POC 6.5 5.0 - 8.0 Protein, ur, POC Negative Negative Urobilinogen, urine, POC 0.2 0.2 - 1.0 mg/dL Nitrite, ur, POC Negative Negative Leukocytes, ur, POC Negative Negative Lot Number [id number] Urine 12/16/2024 3:38 PM CDT Abby Painter NP POINT OF CARE TEST ORDERABLES F inal Result documented in this encounter Visit Diagnoses Diagnosis Burning with urination- Primary Dysuria Pain in testicle, unspecified laterality Left lower quadrant abdominal tenderness without rebound tenderness Tachycardia Unspecified tachycardia documented in this encounter Care Teams Crotch Piece Baster Relationship Specialty Start Date End Date Harms, Cruz Deondre, MD [address] [place] [address] PCP - General Family Medicine 07/09/24 documented as of this encounter
--- OUTSIDE RECORDS SUMMARY | 2024-12-16 21:54 | XMS_ITS | Encounter Summary ---
Author Organization [facility] Healthcare Address [address] [place] [address] Care Team Providers Care Human Resources Executive Assistant Name Role Phone Cruz Thakkar MD Primary Care Provider [phone] Reason for Referral * Consultation (Routine) - Pending Review Specialty Diagnoses / Procedures Referred By Contjasbir t Referred To Contact Physical Therapy Diagnoses Iliotibial band syndrome of right side Dangelo Villalobos PA [address] [place] [address] Phone: tel: fax: External Order Referral ID Status Reason Start Date Expiration Date Visits Requested Visits Authorized [id number] Pending Review Evaluate and Treat 12/11/2024 01/10/2026 4 4 Question Answer PTRFR PT Evaluate and Treat Therapy options discussed with patient? Yes Location provided for therapy services is: Patient requested/Patient preferred Please select the performing region: External Order [171] # of visits: 4 Comments [facility] PT [facility] # [phone] fax # [phone] 1 visit a week x 4 weeks Encounter Details Date Type Department Care Team (Late st Contact Info) Description 12/11/2024 Orders Only [facility] Orthopedic and Sports Medicine [address] [place] [id number] Dangelo Villalobos PA [address] [place] [address] Iliotibial band syndrome of right side (Primary Dx) Social History Tobacco Use Types Packs/Day Years [...] on file Legal Sex Male 5:32 PM 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 Gender Identity Male 07/03/2022 2:34 AM ASSEMBLER FITTER Sexual Orientation Straight 07/03/2022 2: 33 AM ASSEMBLER FITTER documented as of this encounter Functional Status documented as of this encounter Plan of Treatment Scheduled Referrals Name Type Priority Associated Diagnoses Order Schedule Ambulatory referral order to Physical Therapy - Outpatient Referral Routine Iliotibial band syndrome of right side 1 Occurrences starting 12/11/2024 until 12/11/2025 documented as of this encounter Visit Diagnoses Diagnosis Iliotibial band syndrome of right side- Primary documented in this encounter Care Teams Human Resources Executive Assistant Relationship Specialty Start Date End Date Cruz Thakkar [place] [address] PCP - General Family Medicine 07/09/24 documented as of this encounter
--- OUTSIDE RECORDS SUMMARY | 2024-12-16 21:54 | XMS_ITS | Clinical Summary ---
Author Organization [facility] [place] Cynthia at the Medical Office Building Address [address] [place] [address] Care Team Providers Care Basket Hand Weaver Name Role Phone Cruz Thakkar MD Primary Care Provider [phone] Allergies Active Allergy Reactions Criticality Noted Date Comments Cashew Nut Anaphylaxis High 08/14/2024 Pistachio Nut Anaphylaxis High 08/14/2024 Tree Nut Anaphylaxis High 08/18/2021 Medications amitriptyline (ELAVIL) 150 mg tabletIndication s:Irritable bowel syndrome with diarrhea,Psychop hysiological insomnia Take 1 tablet (150 mg total) by mouth nightly 90 tablet 3 5 Active omeprazole (PriLOSEC) 40 mg capsuleIndicatio ns:Gastroesophag eal reflux disease without esophagitis Take 1 capsule (40 mg total) by mouth daily 90 capsule 3 5 Active montelukast (SINGULAIR) 10 mg tablet Take 1 tablet (10 mg total) by mouth nightly 90 tablet 4 5 11/20/19 26 Active ondansetron (ZOFRAN) 4 mg tablet Take 1 tablet (4 mg total) by mouth every 8 (eight) hours as needed for nausea or vomiting 20 tablet 5 11/20/19 25 Discontinu ed(Therapy completed) oxyCODONE-acetam inophen (PERCOCET) 5-325 mg per tabletIndication s:Pain Take 1-2 tablets by mouth every 8 (eight) hours as needed for pain 20 tablet 5 11/20/19 25 Discontinu ed(Therapy completed) Active Problems Problem Noted Date Diagnosed Date Abnormal celiac antibody panel 11/19/2024 Celiac disease 11/19/2024 Constipation 11/19/2024 Gastro-esophageal reflux disease with esophagiti s 11/19/2024 Lower abdominal pain 11/19/2024 Weight loss 11/19/2024 Obstructive sleep apnea 11/19/2024 Assessment & Plan (11/19/2024 2:55 PM CDT): Oren referred to sleep medicine for MARCELINO and will continue to follow response. Non-seasonal allergic rhinitis 11/19/2024 Assessment & Plan (11/19/2024 2:55 PM CDT): WOuld recommend daily OTC combination of flonase and nonsedating antihistamine. WIll add singulair to the regimen and will follow response. BMI 33.0-33.9,adult 11/19/2024 Assessment & Plan (11/19/2024 2:56 PM CDT): Encourage 150min/week aerobic exericse. Healthy food choices. WIll montior response. Class 1 obesity without seri ous comorbidity with body mass index (BMI) of 33.0 to 33.9 in adult 11/19/2024 Sprain of lateral collateral ligament of right k nee 07/09/2024 Assessment & Plan (07/09/2024 10:17 AM PRINCIPAL GIFTS OFFICER): NO findings of ligamentous laxity. Avoid aggravating activiyt. Direct TTP. Reviewed [employer] stretching exercise and home regimen. Right foot pain 07/09/2024 Assessment & Plan (07/09/2024 10:18 AM PRINCIPAL GIFTS OFFICER): No trauma but still need to r/o acute fracture to the proximal 5th MT. Lipid screening 07/09/2024 Assessment & Plan (07/09/2024 10:18 AM PRINCIPAL GIFTS OFFICER): Labwork ordered and pneding. WIll follow response. Establishing care with new doctor, encounter for 07/09/2024 Assessment & Plan (07/09/2024 10:19 AM PRINCIPAL GIFTS OFFICER): Focus of exam is to establish care and reivewed PMHx. WIll continue to follow response. REivwed no indication for early prostate/colon cnacer screening Reviewed sun/skin cancer scrfeenign precautions and will follow response. Obesity (BMI 30.0-34.9) 07/09/2024 Assessment & Plan (07/09/2024 10:19 AM PRINCIPAL GIFTS OFFICER): Encourage 150min/week aerobic execise. Healthy food choices. BMI 32.0-32.9,adult 07/09/2024 Assessment & Plan (07/09/2024 10:19 AM PRINCIPAL GIFTS OFFICER): As above. Nausea and vomiting 04/04/2024 RUQ abdominal pain 03/15/2024 Assessment & Plan (03/15/2024 9:48 AM CDT): - unclear etiology - ddx includes gall stones, fatty liver but also could be related to IBS or GERD that pt is already being treated for - will check RUQ US and CMP - if lab and US normal than consider change to IBS or GERD meds vs EGD Obesity (BMI 30-39.9) 11/17/2023 Assessment & Plan (11/17/2023 7:51 AM CDT): - rec healthy diet and regular exercise Deviated nasal septum 09/20/2023 Assessment & Plan (09/20/2023 1:17 PM CDT): May blow nose in one more week Continue nasal saline 3-4 times daily Follow up in 2 weeks Finish Antibiotics Seasonal allergic rhinitis due to pollen 024 Assessment & Plan (09/29/2023 2:00 PM CDT): Continue nasal saline at least twice daily Flonase 2 sprays into each nostril while looking down over the sink, do not sniff in or blow nose after use for at least 30 minutes daily Assessment & Plan (07/12/2023 3:33 PM PRINCIPAL GIFTS OFFICER): Blood allergy testing CT sinus Nasal saline spray (Simply saline, Little Remedies, [place], [place]) 2 second sprays or 2 squeezes into each nostril while looking down over the sink, do not need to sniff in. Followed by Flonase 2 sprays into each nostril while looking down over the sink, do not sniff in or blow nose after use for at least 30 minutes Consider Septoplasty and inferior turbinate reduction and other procedure based on CT scan findings Nasal polyposis 07/12/2023 Assessment & Plan (07/12/2023 3:33 PM PRINCIPAL GIFTS OFFICER): Blood allergy testing CT sinus Nasal saline spray (Simply saline, Little Remedies, [place], [place]) 2 second sprays or 2 squeezes into each nostril while looking down over the sink, do not need to sniff in. Followed by Flonase 2 sprays into each nostril while looking down over the sink, do not sniff in or blow nose after use for at least 30 minutes Consider Septoplasty and inferior turbinate reduction and other procedure based on CT scan findings Nasal obstruction 04/25/2023 Assessment & Plan (07/12/2023 3:32 PM PRINCIPAL GIFTS OFFICER): Blood allergy testing CT sinus Nasal saline spray (Simply saline, Little Remedies, [place], [place]) 2 second sprays or 2 squeezes into each nostril while looking down over the sink, do not need to sniff in. Followed by Flonase 2 sprays into each nostril while looking down over the sink, do not sniff in or blow nose after use for at least 30 minutes Consider Septoplasty and inferior turbinate reduction and other procedure based on CT scan findings Assessment & Plan (04/25/2023 4:29 PM PRINCIPAL GIFTS OFFICER): - ref to ENT - start daily neti pot and flonase Annual physical exam 10/21/2022 Assessment & Plan (11/17/2023 7:51 AM CDT): - Reviewed with the patient BMI, blood pressure, diet, exercise, and encouraged healthy lifestyle choices. - Screened for high risk behaviors, diet and exercise habits, and symptoms of depression. - encouraged regular exercise and weight loss Assessment & Plan (10/21/2022 3:23 PM CDT): - Reviewed with the patient BMI, blood pressure, diet, exercise, and encouraged healthy lifestyle choices. - Screened for high risk behaviors, diet and exercise habits, and symptoms of depression. - encouraged regular exercise and weight loss Strain of right hamstring 09/29/2021 Assessment & Plan (11/25/2021 10:49 AM CDT): - PT notes reviewed - pt making progress - reassured pt he should continue with therapy as it takes time for muscle tightness to improve - f/u prn Assessment & Plan (09/29/2021 4:10 PM CDT): - uncontrolled - ref for PT Irritable bowel syndrome with diarrhea Assessment & Plan (04/03/2024 3:29 PM CDT): - normal abd CT - pt abd pain likely due to constipation with stool burden in RUQ. - rec pt continue amitriptyline at regular dose - start miralax q15-60 min until stool passed - f/u if abd pain continues after having BM Assessment & Plan (03/15/2024 9:47 AM CDT): - stable - continue amitriptyline Assessment & Plan (11/17/2023 7:50 AM CDT): - stable - continue amitriptyline Assessment & Plan (04/25/2023 4:29 PM PRINCIPAL GIFTS OFFICER): - stable - continue current medication Assessment & Plan (10/21/2022 3:24 PM CDT): - stable - continue current medication Assessment & Plan (11/25/2021 10:48 AM CDT): - stable - continue current medication Assessment & Plan (09/29/2021 4:11 PM CDT): - much improved - will increase amitriptyline to 150mg qhs to try to decrease last bit of diarrhea - f/u in 6 mo or sooner prn Assessment & Plan (08/18/2021 4:04 PM PRINCIPAL GIFTS OFFICER): - uncontrolled - start amitriptyline 50mg qhs, increase to 100mg qhs after 1 wk - will also check labs for possible signs of IBD though unlikely given multiple scopes all neg, also look for signs of infection. - f/u in 1 mo Mild episode of recurrent major depressive disor kaye 08/18/2021 Assessment & Plan (08/18/2021 4:03 PM PRINCIPAL GIFTS OFFICER): - stable - pt unsure if benefit from lexapro so will stop that - start amitriptyline for IBS, may get some antidepressant effect from it - f/u in 1 mo CHRISTIANE (generalized anxiety disorder) 08/18/2021 Assessment & Plan (07/09/2024 10:17 AM PRINCIPAL GIFTS OFFICER): Continues on amitriptyline and will follow response. WIll montior response. 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 IBS related, vs cyclic vomiting - start amitriptyline 50mg qhs and increase to 100mg qhs after 1 wk - f/u in 1 mo Psychophysiological insomnia 08/18/2021 Assessment & Plan (11/17/2023 7:50 AM CDT): - stable - continue amitriptyline Assessment & Plan (10/21/2022 3:24 PM CDT): - stable - continue current medication Assessment & Plan (11/25/2021 10:49 AM CDT): - stable - continue current medication Assessment & Plan (09/29/2021 4:11 PM CDT): - improved - will increase amitriptyline to 150mg qhs - discussed sleep hygiene - f/u in 6 mo or sooner prn Assessment & Plan (08/18/2021 4:03 PM PRINCIPAL GIFTS OFFICER): - uncontrolled - stop benadryl - start amitriptyline at night - f/u in 1 mo Gastroesophageal reflux disease 12/11/2012 Overview (09/22/2016): GERD (gastroesophageal reflux disease) Assessment & Plan (04/03/2024 3:29 PM CDT): - stable - continue omeprazole Assessment & Plan (03/15/2024 9:47 AM CDT): - stable - continue omeprazole Assessment & Plan (11/17/2023 7:50 AM CDT): - stable - continue omeprazole Assessment & Plan (04/25/2023 4:29 PM PRINCIPAL GIFTS OFFICER): - stable - continue current medication Assessment & Plan (10/21/2022 3:24 PM CDT): - uncontrolled - start omeprazole 40mg daily Resolved Problems Problem Noted Date Diagnosed Date Resolved Date Biliary dyskinesia 08/14/2024 5 Encounters Date Type Department Care Team Description 12/16/2024 3:54 PM CDT Hospital Encounter [address] [address] Burning with urination 12/16/2024 2:45 PM CDT Office Visit [facility] at [address] [phone] Abby Painter NP Burning with urination (Primary Dx); Pain in testicle, unspecified laterality; Left lower quadrant abdominal tenderness without rebound tenderness; Tachycardia 12/11/2024 11:15 AM CDT Office Visit [facility] [address] [place] [phone] Dangelo Villalobos PA Iliotibial band syndrome of right side (Primary Dx) 12/11/2024 11:00 AM CDT Ancillary Procedure [facility] at [address] [phone] 12/11/2024 Orders Only [facility] [address] [place] [phone] Dangelo Villalobos PA Iliotibial band syndrome of right side (Primary Dx) 11/19/2024 1:45 PM CDT Office Visit [facility] at [address] [phone] Cruz Thakkar MD Obstructive sleep apnea (Primary Dx); Non-seasonal allergic rhinitis, unspecified trigger; BMI 33.0-33.9,adult; Class 1 obesity without serious comorbidity with body mass index (BMI) of 33.0 to 33.9 in adult, unspecified obesity type from Last 3 Months Immunizations Immunization Administration Dates Next Due Influenza, Trivalent, Split, Preservative Free, Intradermal 04/17/2012 Influenza, Unspecified 07/09/2024(Deferr ed: Patient Refused),04/03/2024(Deferred: Patient Refused),06/19/2023(Deferred: Patient Refused),04/25/2023(Deferred: Patient Refused),03/19/2022(Deferred: Patient Refused),08/18/2021(Deferred: Patient Refused),03/19/2021(Deferred: Patient Refused) Tdap 06/19/2008 Surgical History Surgery Date Site/Laterality Comments WISDOM TOOTH EXTRACTION TONSILLECTOMY COLONOSCOPY ESOPHAGOSCOPY / EGD UPPER GASTROINTESTINAL ENDOSCOPY SEPTORHINOPLASTY 09/18/2023 - 10/17/2023 CHOLECYSTECTOMY 08/20/2024 Medical History Medical History Date Comments Gastroesophageal reflux disease GERD Hx Other Medical varicocele IBS (irritable bowel syndrome) Anxiety Colon polyp Depression Obstructive sleep apnea 11/19/2024 Family History Medical History Relation Name Comments Other Maternal Grandfather Peptic ulcer disease; No Known Problems Mother Cancer Other 1 Family history of Cancer -; Breast cancer Other 2 Family history of Cancer -breast; Colon cancer Other 3 Family history of Cancer -colon; Coronary artery disease Other 4 Fami ly history of Coronary artery disease; Diabetes type II Other 5 Family hist ory of Diabetes -Type 2; Hyperlipidemia Other 6 Family histor y of Hyperlipidemia; Hypertension Other 7 Family history of Hypertension; Relation Name Status Comments Father Other Maternal Grandfather Mother Alive Other 1 Other 2 Other 3 Other 4 Other 5 Other 6 Other 7 Social History Tobacco Use Types Packs/Day Years Used Date Smoking Tobacco: Former Smokeless Tobacco: Never Tobacco Cessation:Counseling Given: Not Answered AUDIT-C Answer Date Recorded Q1: How often [...] on file Legal Sex Male 5:32 PM PRINCIPAL GIFTS OFFICER Gender Identity Male 07/03/2022 2:34 AM PRINCIPAL GIFTS OFFICER Sexual Orientation Straight 07/03/2022 2: 33 AM PRINCIPAL GIFTS OFFICER Obstetrics History Last Filed Vital Signs Vital Sign Reading [...] Mass Index 33.49 12/16/2024 2:55 PM CDT Plan of Treatment Health Maintenance Due Date Last Done Comments Hepatitis C Screening 1992 Varicella Vaccines (1 of 2 - 13+ 2-dose series) 2005 Hepatitis B Screening 2010 DTaP/Tdap/Td Vaccine (2 - Td or Tdap) 06/19/2018 06/19/2008 Regular Well Visit/Exam 18-64 11/16/2024 11/17/2023, 10/21/2022 Influenza Vaccine (Season Ended) 2025 04/17/2012 Depression Screening 11/19/2025 11/19/2024, 07/30/2024, 07/09/2024, Additional history exists HPV Vaccines Aged Out No longer eligi ble based on patient's age to complete this topic Pneumococcal vaccine <65 Aged Out No longer eligible based on patient's age to complete this topic Procedures Procedure Name Priority Date/Time Associated Diagnosis Comments POCT URINALYSIS DIPSTICK Routine 12/16/2024 3:38 PM CDT Burning with urination XR KNEE RIGHT 4 OR MORE VIEWS Schedule Routine, Read Routine (OP Routine) 12/11/2024 11:09 AM CDT Iliotibial band syndrome of right side from Last 3 Months Results * POCT urinalysis dipstick (12/16/2024 3:38 PM CDT) Color, Urine, POC Yellow Clarity, ur, POC Clear Clear Glucose, ur, POC Negative Negative Bilirubin, ur, POC Negative Negative Ketones, ur, POC Negative Negative Specific [place], POC 1.025 1.003 - 1.030 Blood, ur, POC Negative Negative pH, ur, POC 6.5 5.0 - 8.0 Protein, ur, POC Negative Negative Urobilinogen, urine, POC 0.2 0.2 - 1.0 mg/dL Nitrite, ur, POC Negative Negative Leukocytes, ur, POC Negative Negative Lot Number [id number] Urine 12/16/2024 3:38 PM CDT Abby Painter NP POINT OF CARE TEST ORDERABLES F inal Result * XR Knee Right 4 or More Views (12/11/2024 11:09 AM CDT) Anatomical Region Laterality Modality Lower Extremities, Knee Right Digital Radiography Narrative 12/11/2024 11:15 AM CDT X-rays of the knee taken today are reviewed, they are negative for fracture dislocation or osseous lesion. No periosteal reaction or bone destruction. Joint space well maintained. Soft tissues unremarkable. Dangelo PAEZ IMG XR PROCEDURES Final Res ult from Last 3 Months Insurance [facility] OPEN ACCESS [facility] HMO/PPO Address: [facility] [id number] [place] [phone] Care Teams Basket Hand Weaver Relationship Specialty Start Date End Date Cruz Thakkar MD [address] [place] [address] PCP - General Family Medicine 07/09/24
--- OUTSIDE RECORDS SUMMARY | 2024-12-16 21:54 | XMS_ITS | Referral Summary ---
Author Organization [facility] [place] [facility] at the Medical Office Building Address [address] [place] [address] Care Team Providers Care Vamp Throater Name Role Phone Cruz Thakkar MD Primary Care Provider [phone] Encounters Date Type Department Care Team Description 12/16/2024 3:54 PM CDT Hospital Encounter [address] [address] Burning with urination 12/16/2024 2:45 PM CDT Office Visit [facility] at [address] [phone] Abby Painter NP Burning with urination (Primary Dx); Pain in testicle, unspecified laterality; Left lower quadrant abdominal tenderness without rebound tenderness; Tachycardia 12/11/2024 Orders Only [facility] [address] [place] [phone] Dangelo Villalobos PA Iliotibial band syndrome of right side (Primary Dx) 12/11/2024 11:00 AM CDT Ancillary Procedure [facility] at [address] [phone] 12/11/2024 11:15 AM CDT Office Visit [facility] [address] [place] [phone] Dangelo Villalobos PA Iliotibial band syndrome of right side (Primary Dx) 11/19/2024 1:45 PM CDT Office Visit [facility] Care at [address] [phone] Cruz Thakkar MD Obstructive sleep apnea (Primary Dx); Non-seasonal allergic rhinitis, unspecified trigger; BMI 33.0-33.9,adult; Class 1 obesity without serious comorbidity with body mass index (BMI) of 33.0 to 33.9 in adult, unspecified obesity type from Last 3 Months Allergies Active Allergy Reactions Criticality Noted Date [...] 07/09/2024 Assessment & Plan (07/09/2024 10:17 AM SOCK LINER): NO findings of ligamentous laxity. Avoid aggravating activiyt. Direct TTP. Reviewed [employer] stretching exercise and home regimen. Right foot pain 07/09/2024 Assessment & Plan (07/09/2024 10:18 AM SOCK LINER): No trauma but still need to r/o acute fracture to the proximal 5th MT. Lipid screening 07/09/2024 Assessment & Plan (07/09/2024 10:18 AM SOCK LINER): Labwork ordered and pneding. WIll follow response. Establishing care with new doctor, encounter for 07/09/2024 Assessment & Plan (07/09/2024 10:19 AM SOCK LINER): Focus of exam is to establish care and reivewed PMHx. WIll continue to follow response. REivwed no indication for early prostate/colon cnacer screening Reviewed sun/skin cancer scrfeenign precautions and will follow response. Obesity (BMI 30.0-34.9) 07/09/2024 Assessment & Plan (07/09/2024 10:19 AM SOCK LINER): Encourage 150min/week aerobic execise. Healthy food choices. BMI 32.0-32.9,adult 07/09/2024 Assessment & Plan (07/09/2024 10:19 AM SOCK LINER): As above. Nausea and vomiting 04/04/2024 RUQ [...] daily Assessment & Plan (07/12/2023 3:33 PM SOCK LINER): Blood allergy testing CT sinus Nasal saline spray (Simply saline, Little Remedies, [place], [place]) 2 second sprays or 2 squeezes into [...] 07/12/2023 Assessment & Plan (07/12/2023 3:33 PM SOCK LINER): Blood allergy testing CT sinus Nasal saline spray (Simply saline, Little Remedies, [place], [place]) 2 second sprays or 2 squeezes into [...] 04/25/2023 Assessment & Plan (07/12/2023 3:32 PM SOCK LINER): Blood allergy testing CT sinus Nasal saline spray (Simply saline, Little Remedies, [place], [place]) 2 second sprays or 2 squeezes into [...] findings Assessment & Plan (04/25/2023 4:29 PM SOCK LINER): - ref to ENT - start daily [...] amitriptyline Assessment & Plan (04/25/2023 4:29 PM SOCK LINER): - stable - continue current medication Assessment [...] prn Assessment & Plan (08/18/2021 4:04 PM SOCK LINER): - uncontrolled - start amitriptyline 50mg qhs, increase to 100mg qhs after 1 wk - will also check labs for possible signs of IBD though unlikely given multiple scopes all neg, also look for signs of infection. - f/u in 1 mo Mild episode of recurrent major depressive disor kaye 08/18/2021 Assessment & Plan (08/18/2021 4:03 PM SOCK LINER): - stable - pt unsure if benefit from lexapro so will stop that - start amitriptyline for IBS, may get some antidepressant effect from it - f/u in 1 mo CHRISTIANE (generalized anxiety disorder) 08/18/2021 Assessment & Plan (07/09/2024 10:17 AM SOCK LINER): Continues on amitriptyline and will follow response. WIll montior response. 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 [employer] Assessment & Plan (09/29/2021 4:11 PM CDT): - resolved Assessment & Plan (08/18/2021 4:00 PM SOCK LINER): - stable - will stop lexapro given pt unsure if benefit and it interacts with amitriptyline - f/u in 1 mo, if sx worsen will consider addition of lexapro or alternate SSRI/SNRI Psychogenic vomiting with nausea 08/18/2021 Assessment & Plan (08/18/2021 4:01 PM SOCK LINER): - unclear etiology of vomiting - anxiety [...] prn Assessment & Plan (08/18/2021 4:03 PM SOCK LINER): - uncontrolled - stop benadryl - start [...] omeprazole Assessment & Plan (04/25/2023 4:29 PM SOCK LINER): - stable - continue current medication Assessment & Plan (10/21/2022 3:24 PM CDT): - uncontrolled - start omeprazole 40mg daily Resolved Problems Problem Noted Date Diagnosed Date Resolved Date Biliary dyskinesia 08/14/2024 5 Immunizations Immunization Administration Dates Next Due Influenza, Trivalent, Split, Preservative Free, Intradermal 04/17/2012 Influenza, Unspecified 07/09/2024(Deferr ed: Patient Refused),04/03/2024(Deferred: Patient Refused),06/19/2023(Deferred: Patient Refused),04/25/2023(Deferred: Patient Refused),03/19/2022(Deferred: Patient Refused),08/18/2021(Deferred: Patient Refused),03/19/2021(Deferred: Patient Refused) Tdap 06/19/2008 Social History Tobacco Use Types Packs/Day Years [...] on file Legal Sex Male 5:32 PM SOCK LINER Gender Identity Male 07/03/2022 2:34 AM SOCK LINER Sexual Orientation Straight 07/03/2022 2: 33 AM SOCK LINER Last Filed Vital Signs Vital Sign Reading [...] 12/16/2024 2:55 PM CDT Plan of Treatment Not on file Procedures Procedure Name Priority Date/Time Associated Diagnosis [...] Negative Ketones, ur, POC Negative Negative Specific [place], POC 1.025 1.003 - 1.030 Blood, ur, POC Negative Negative pH, ur, POC 6.5 5.0 - 8.0 Protein, ur, POC Negative Negative Urobilinogen, urine, POC 0.2 0.2 - 1.0 mg/dL Nitrite, ur, POC Negative Negative Leukocytes, ur, POC Negative Negative Lot Number [id number] Urine 12/16/2024 3:38 PM CDT Abby Painter [...] Res ult from Last 3 Months Insurance [employer] OPEN ACCESS Care Teams Vamp Throater Relationship Specialty Start Date End Date Cruz Thakkar MD [address] [place] [address] PCP - General Family Medicine 07/09/24
--- OUTSIDE RECORDS SUMMARY | 2024-12-16 21:54 | XMS_ITS | Encounter Summary ---
Author Organization [facility] Healthcare Address [address] [place] [id number] Care Team Providers Care Materials Recycler Name Role Phone Cruz Thakkar MD Primary Care Provider [phone] Encounter Details Date Type Department Care Team (Latest Contact Info) Description 12/16/2024 3:54 PM CDT Hospital Encounter [facility] [id number] [place] [address] [phone] Burning with urination Social History Tobacco Use Types Packs/Day Years [...] on file Legal Sex Male 5:32 PM CHILDREN'S MINISTER Gender Identity Male 07/03/2022 2:34 AM CHILDREN'S MINISTER Sexual Orientation Straight 07/03/2022 2: 33 AM CHILDREN'S MINISTER documented as of this encounter Plan of Treatment Pending Results Name Type Priority Associated Diagnoses Date /Time Urine culture Urine, clean voided Microbiology Routine Burning with urination 12/16/2024 3:54 PM CDT Scheduled Orders Name Type Priority Associated Diagnoses Orde r Schedule Urine culture Urine, clean voided Microbiology Routine Burning with urination Once for 1 Occurrences starting 12/16/2024 until 12/16/2024 documented as of this encounter Visit Diagnoses Diagnosis Burning with urination Dysuria documented in this encounter Care Teams Materials Recycler Relationship Specialty Start Date End [place] [address] PCP - General Family Medicine 07/09/24 documented as of this encounter
--- OUTSIDE RECORDS SUMMARY | 2024-12-16 21:54 | XMS_ITS | Encounter Summary ---
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
[2024-12-16] MEDS: PHENAZOPYRIDINE HCL 100 MG TABLET PO (22:50)
== END 2024-12-16 22:53 | disposition home or self-care (01) ==
PROVIDERS: Registered Nurse; Emergency Provider Student in an Organized Health Care Education/Training Program; PCP Family Medicine
DX: D64.9 Anemia, unspecified (principal); R30.0 Dysuria; N52.9 Male erectile dysfunction, unspecified; R39.198 Other difficulties with micturition
CPT/HCPCS: 36415; 74177; 80053; 81001; 83605; 83690; 84484; 85025; 93005; 99284; A9270; Q9967